=== PATIENT | female | born 1995 | race Caucasian/White ===

== ENCOUNTER 2022-09-23 21:24 | Emergency (ER) | payer BC ==
[~2022-09-23] VITALS: Ht 170.2 cm; Wt 66.0 kg
[2022-09-23 21:40] VITALS: BP 121/91
== END 2022-09-23 23:19 | disposition left against medical advice (07) ==
LOC: ER 21:54
DX: Z53.21 Procedure and treatment not carried out due to patient leaving prior to being seen by health care provider (principal)